=== PATIENT | male | born 1995 | race Caucasian/White ===

== ENCOUNTER 2019-11-25 12:02 | Emergency (ER) | payer OTHER ==
[~2019-11-25] VITALS: Ht 172.7 cm; Wt 90.7 kg
[2019-11-25 12:09] VITALS: BP_SYST 145
--- NOTE | 2019-11-25 12:09 | NUR ---
Placed in room 03 . Placed on packer dried beef, blood pressure machine and pulse oximeter. To gown for exam. Side rails up.
--- NOTE | 2019-11-25 12:23 | NUR ---
ER Dr. Fernandez at bedside examining patient.
[2019-11-25] MEDS ORDERED: LORazepam 2 MG/ML VIAL IVP ONE (12:45)
[2019-11-25] MEDS ORDERED: NACL 0.9% 1,000 ML IV ONE (12:45)
--- NOTE | 2019-11-25 13:00 | NUR ---
CALM, ALERT, RESP UNLABORED, SKIN WARM AND DRYY. COMMUNICATES CLEARLY NAD STATED FEELING BETTER, DENIES PAIN. DENIES CP/SOB. STATED HE WAS "ANXIOUS" NO FEELING BETTER
[2019-11-25 13:09] LABS: BASOPHILS % (AUTO) 0.9 % (0.0-2.0); EOSINOPHILS # (AUTO) 0.1 K/uL (0.0-0.4); EOSINOPHILS % (AUTO) 1.9 % (0.0-4.0); HEMATOCRIT 43.5 % (36-54); HEMOGLOBIN 14.3 g/dL (14.0-18.0); LYMPHOCYTES # (AUTO) 1.4 K/uL (1.0-5.5); LYMPHOCYTES % (AUTO) 26.6 % (20.5-51.5); MEAN CORPUSCULAR HEMOGLOBIN 31 pg (27-31); MEAN CORPUSCULAR HGB CONC 33 % (32-36); MEAN CORPUSCULAR VOLUME 94 fL (79.0-98.0); MONOCYTES # (AUTO) 0.4 K/uL (0.0-1.0); MONOCYTES % (AUTO) 7.7 % (1.7-9.3); NEUTROPHILS # (AUTO) 3.4 K/uL (1.8-7.7); NEUTROPHILS % (AUTO) 62.9 % (40.0-70.0); RED BLOOD CELL COUNT(AUTO) 4.62 MIL/uL (4.2-6.2); RED CELL DISTRIBUTION WIDTH 13.8 % (9.0-15.0); WHITE BLOOD COUNT (AUTO) 5.4 K/uL (4.8-10.8)
[2019-11-25 13:37] LABS: CALCIUM 9.1 mg/dL (8.4-11.0); CREATININE 1.18 mg/dL (0.55-1.30); POTASSIUM 4.3 mmol/L (3.5-5.1)
[2019-11-25 13:42] LABS: ALBUMIN 3.9 g/dL (3.4-4.8); TOTAL BILIRUBIN 0.6 mg/dL (0.0-1.0)
[2019-11-25 13:47] VITALS: BP_SYST 132
--- NOTE | 2019-11-25 13:53 | NUR ---
Patient given written and verbal discharge instructions and verbalizes understanding. ER MD PERES discussed with patient the results and treatment provided. Patient in stable condition. ID arm band removed. IV catheter removed intact and dressing applied, no active bleeding. Rx of METOPROLOL given. Patient educated on pain management and to follow up with PMD. Pain Scale 0/100 Opportunity for questions provided and answered. Medication side effect fact sheet provided.
[2019-11-25 14:34] LABS: PLATELET COUNT (AUTO) 156 K/uL (130-430)
== END 2019-11-25 13:47 | disposition home or self-care (01) ==
LOC: SED 12:02
DX: R00.2 Palpitations (principal)
CPT/HCPCS: 36415; 80053; 85025; 93005; 96374; 99284; J2060; J7030